=== PATIENT | male | born 1965 | race Caucasian/White ===

== ENCOUNTER 2024-03-31 08:06 | Outpatient (CLI) | payer BC, SELFPAY ==
--- NOTE | 2024-03-31 08:15 | MR_ITS ---
[address] [address] Phone:?[phone] Fax:?[phone] Referring Physician Information: Tereso Delcid M.D. [id number] [facility] [address] Phone:?[phone] Fax:?[phone] Patient:?Hussein Foy D.O.B:?1965 Sex:?Male Phone:?[phone] [facility] MRN:?[id number] Exam Date:?03/31/2024 EXAM: MRI of the LEFT KNEE, without contrast CLINICAL INFORMATION: Male, 59 years old, with left knee pain INDICATION: Evaluate left knee osteoarthritis PRIOR SURGERY: None reported. PLAIN FILMS: None available. COMPARISONS: Knee MRI 12/17/2016. TECHNICAL INFORMATION: Using a 1.5T MR scanner and a localizing surface coil: sagittals: PD, PDFS coronals: PD, T2FS axials: PD, PDFS SEDATION: None CONTRAST: None FINDINGS: Knee joint: Effusion: Small sized left knee effusion. Popliteal cyst: Small popliteal cyst, without evidence of rupture Loose bodies: None. Subcutaneous and extra-articular soft tissues: Unremarkable. Ligaments: ACL: Intact ACL anteromedial and posterolateral bundles, without sprain or tear. PCL: Intact PCL, without acute or chronic injury. MCL: Intact MCL superficial and deep layers, without injury. LCL: Intact LCL, without injury. Posterolateral corner: No posterolateral corner soft tissue injury. Popliteus, biceps femoris, iliotibial band, popliteofibular ligament and lateral gastrocnemius are intact. Posteromedial corner: No posteromedial corner soft tissue injury. Semimembranosus, pes anserine tendons and posterior oblique ligament are without injury, tendinopathy or bursitis. Extensor mechanism: Patellar tendon: Intact, without tendinopathy. Quadriceps tendon: Intact, without tendinopathy. Retinacula: Medial and lateral retinacula are intact. Fat pads: Unremarkable infrapatellar Hoffa's, quadriceps and prefemoral fat pads. Medial compartment: Medial meniscus: The medial meniscus is abnormal in appearance. There is complex tearing with radial component at the level of the mid body (coronal series 8 images 19-16). Additional horizontal inferior articular surface tearing extending through the remainder of the body segment. Horizontal superior articular surface tearing is present involving the anterior body. Apical free edge fraying and tearing extends through the posterior horn with superimposed vertical oblique radial tearing at the level of the posterior horn/root (sagittal series 6 images 13-15). 6 mm peripheral meniscal extrusion at the level of the body. Medial femoral condyle: Grade IV chondromalacia along the central weightbearing medial femoral condyle measuring approximately 2.0 x 2.4 cm. Mild marrow reactive edema and peripheral osteophytosis. Medial tibial plateau: Grade IV chondromalacia along the central medial tibial plateau measuring 1.6 x 2.0 cm with moderate underlying marrow edema. Lateral compartment: Lateral meniscus: Horizontal undersurface tearing of the posterior root lateral meniscus without complete posterior root disruption. The meniscofemoral ligament is intact. Lateral femoral condyle: No chondromalacia or osteochondral abnormality. Lateral tibial plateau: Grade 2 chondral heterogeneity with shallow fraying along the central lateral tibial plateau. Patellofemoral joint: Patella: Grade III chondromalacia with full-thickness fissuring of the lateral patellar facet. No underlying marrow reactive edema. Trochlea: No chondromalacia or osteochondral abnormality. Proximal tibiofibular joint: Unremarkable, without evidence of ligament sprain injury, joint effusion or adjacent marrow edema. Bones: No stress/occult fracture. Redemonstrated bipartite appearance of the patella with osseous bony fragment along the superolateral margin. No significant marrow edema is seen within the accessory ossification center, with minimal degenerative cystic change across the synchondrosis. IMPRESSION: 1. Tearing throughout the medial meniscus as described above with complex high- grade radial component at the level of the mid body, as well as partial tearing of the posterior root. 6 mm peripheral meniscal extrusion at the level of the body. 2. Moderate towards advanced medial compartment osteoarthritis as described above. 3. Horizontal undersurface tearing of the posterior root lateral meniscus. 4. Grade III chondromalacia with full-thickness fissuring of the lateral patellar facet. 5. Mild chondral heterogeneity and shallow fraying of the lateral tibial plateau. 6. Bipartite appearance of the patella with only minimal degenerative change across the synchondrosis, and without overlying chondral abnormality/cleft. 7. No cruciate or collateral ligament sprain/tear. 8. Small knee joint effusion. Small popliteal cyst KME Electronically signed on 03/31/2024 5:02:00 PM by Kalpana Ruiz M.D.
== END 2024-03-31 08:07 | disposition home or self-care (01) ==
LOC: MRI 08:07
PROVIDERS: Visit Provider Orthopaedic Surgery
DX: M25.562 Pain in left knee (principal); M17.12 Unilateral primary osteoarthritis, left knee; S83.232A Complex tear of medial meniscus, current injury, left knee, initial encounter; S83.282A Other tear of lateral meniscus, current injury, left knee, initial encounter; M94.262 Chondromalacia, left knee; M25.462 Effusion, left knee; M71.22 Synovial cyst of popliteal space [Baker], left knee
CPT/HCPCS: 73721

== ENCOUNTER 2024-09-22 07:05 | Outpatient (CLI) | payer BC, SELFPAY ==
--- NOTE | 2024-09-22 07:15 | CRLHL7_ITS ---
For Patients: As a result of the Century Cures Act, medical imaging exams and procedure reports are released immediately into your electronic medical record. You may view this report before your referring provider. If you have questions, please contact your health care provider. EXAM: MRI OF THE LEFT SHOULDER, WITHOUT CONTRAST CLINICAL INDICATION: Shoulder pain. PRIOR SURGERY: None reported. COMPARISON PLAIN FILMS: 15 September 2024 COMPARISON CROSS-SECTIONAL IMAGING STUDIES: None available at time of interpretation. TECHNICAL: Axial, sagittal oblique and coronal oblique T1, PD, PD FS and T2-weighted images. FINDINGS: GLENOHUMERAL JOINT: Effusion/Cyst: Small effusion. Strandy synovitis. No paralabral or periarticular cyst or ganglion. Humeral Head Articular Cartilage: No osteochondral lesion or abnormality. Glenoid Articular Cartilage: No osteochondral lesion or abnormality. Loose Bodies: No appreciable loose bodies. Capsule: No convincing evidence of adhesive capsulitis or capsular injury. OSSEOUS STRUCTURES: No fracture, marrow edema or marrow replacement process. CORACOACROMIAL ARCH: Acromial Morphology: Type 2 acromial morphology. No abnormal lateral or anterior downward sloping of the acromion. No os acromiale. No significant subacromial spur. Lateral acromial thickness is 6 mm. Acromiohumeral Interval: The acromiohumeral interval is significantly narrowed from superior subluxation humeral head. At its narrowest, the interval measures 2-3 mm. No abnormal thickening of the coracoacromial ligament. Coracohumeral Interval: The coracohumeral interval is normal. At its narrowest, the coracohumeral interval measures 9 mm. Coracoid index is 20 mm. ACROMIOCLAVICULAR JOINT REGION: AC Joint: No significant arthrosis, inferior hypertrophy, joint space widening, findings of acute injury or AC joint capsulitis. Upper normal width 5 mm. Ligaments: The coracoclavicular ligaments are intact. BURSAE: Subacromial-Subdeltoid: Moderately extensive fluid and some strandy synovitis or hemorrhage. Subcoracoid: Moderately large volume of fluid. Some strandy intermediate signal hemorrhage or synovitis. ROTATOR CUFF TENDONS AND MUSCLES AND DELTOID: Supraspinatus: Full-thickness tear from the footplate retracted to the glenohumeral joint line roughly 4 centimeters from expected insertion. Tapered tendon with partial tearing at the articular margin. Grade 1 muscle atrophy. Infraspinatus: Full-thickness tear retracted to the posterior humeral head. Delaminating articular tear into a small intramuscular ganglion along the undersurface of the musculotendinous junction. Minor grade 1 muscle atrophy. Teres Minor: No tendinosis, tendon tearing, muscle atrophy or muscle edema. Subscapularis: Full-thickness tearing superior insertion and high-grade undersurface tearing through the remaining insertion. Tendinosis or contusion in the intact proximal tendon. No muscle atrophy. Deltoid: No muscle atrophy or edema. BICEPS TENDON, LONG HEAD: High-grade near complete tear with medial subluxation onto the lesser tuberosity. The biceps anchor appears grossly intact. GLENOID LABRUM: Somewhat small blunted labrum circumferentially. No linear tear. OTHER FINDINGS: There is no abnormality within the suprascapular or spinoglenoid notches nor within the quadrilateral space. No axillary adenopathy or mass. IMPRESSION: 1. Chronic full-thickness tear supraspinatus and infraspinatus and superior inserting subscapularis. Superior subluxation humeral head. Mild muscle atrophy supraspinatus and infraspinatus. 2. Biceps anupam tear and medial subluxation of the biceps with high-grade partial tearing which is near-complete over the lesser tuberosity and intra-articular tendon. 3. Moderate effusion and hemorrhage or synovitis in the glenohumeral joint and subacromial/subdeltoid bursa including subcoracoid recess. Dictated by Gus Sofia MD @ 09/22/2024 1:32:31 PM (Electronically Signed)
== END 2024-09-22 07:06 | disposition home or self-care (01) ==
LOC: MRI 07:06
PROVIDERS: Visit Provider Physician Assistant
DX: M25.512 Pain in left shoulder (principal); M75.102 Unspecified rotator cuff tear or rupture of left shoulder, not specified as traumatic; S46.212A Strain of muscle, fascia and tendon of other parts of biceps, left arm, initial encounter; M25.412 Effusion, left shoulder
CPT/HCPCS: 73221

== ENCOUNTER 2024-10-13 08:19 | Day surgery (SDC) | payer BC, SELFPAY ==
[2024-10-13] VITALS (14 sets, daily range): BP systolic 94–146; BP diastolic 59–96; PULSE 52–73; RESP 14–20; TEMP 36–36.9; O2SAT 90–99; BMI 37.6
--- OUTSIDE RECORDS SUMMARY | 2024-10-13 08:22 | XMS_ITS | Clinical Summary ---
Author Organization [employer] [facility] Address [address] [place] [address] Care Team Providers Care Director Of Safety And Security Name Role Phone Pcp, No Primary Care Provider Unavailabl e Allergies No known active allergies Medications CPAPIndications :Obstructive sleep apnea CPAP machine for home use at pressure: 4-15 CM H20 , Heated humidifier x 1, Humidifier chamber x 1, Full face mask with cushion x 1, Heated tubing x 1, Headgear x 1, Filters: Disposable x 1pk & Reusable x 1pk, Length of Need: 99 months, Frequency of use: Daily 1 Each 4 Active predniSONE (DELTASONE) 20 mg tabletIndicatio ns:Pes planus of both feet,Posterior tibial tendon dysfunction, bilateral,Sinus tarsi syndrome, unspecified laterality,Neo rocnemius equinus, unspecified laterality Take 2 tabs once daily for 3 days then 1 tab once daily for 3 days then 1/2 tab once daily for 4 days. 11 Tablet 3 10/01/19 25 Discontin ued(*Vicky ent states no longer taking) predniSONE (DELTASONE) 10 mg tabletIndicatio ns:Posterior tibial tendon dysfunction, bilateral,Sinus tarsi syndrome, unspecified laterality 4 tablets daily for 3 days, then 3 tablets daily for 3 days, then 2 tablets daily for 3 days, then 1 tablet once daily for 3 days. 30 Tablet 4 10/01/19 25 Discontin ued(*Vicky ent states no longer taking) Active Problems Problem Noted Date Diagnosed Date Nephrolithiasis 09/02/2021 DEBORA (acute kidney injury) 09/02/2021 HELENE , 12/2007, AHI 105 01/02/2017 Encounter for screening colonoscopy Encounters Date Type Department Care Team Description 10/01/2024 7:55 AM CLINICAL STUDY MANAGER Office Visit [address] [address] Bc Huang PA Pre-Op Exam (DOS 10/13/2024; Left rotator cuff) 10/01/2024 Travel from Last 3 Months Immunizations Name Administration Dates Next Due Mumps 12/27/1978 Tdap 04/29/2023,02/06/2013 Family History Medical History Relation Name Comments Heart Disease Father Diabetes Mother Anesthesia Problem No Family History Relation Name Status Comments Brother Alive Daughter 1 Alive Daughter 2 Alive Father Maternal Grandfather Maternal Grandmother Mother Alive Diabetes Paternal Grandfather Paternal Grandmother Sister Alive Social History Tobacco Use Types Packs/Day Years Used Date Smoking Tobacco: Every Day Pipe Last attempted to quit: 02/01/2018 Cigars Smokeless Tobacco: Never Tobacco Cessation:Ready to Q uit: No; Counseling Given: No Comments:occ. cigar Alcohol Use Standard Drinks/Week Comments Yes 10 (1 standard drink = 0.6 oz pu re alcohol) PHQ-2 Answer Date Recorded PHQ-2 TOTAL SCORE 0 12/17/2023 Social Connections Answer Date Recorded Do you often feel lonely or isolated from those around you? 0 10/01/2024 Financial Resource Strain Answer Date R ecorded Difficulty of Paying Living Expenses 3 10/01/2024 Difficulty of Paying Living Expenses Not on file 10/01/2024 Food Insecurity Answer Date Recorded Do you worry your food will run out before you are able to buy more? 1 10/01/2024 Transportation Needs Answer Date Record ed Does lack of transportation keep you from medica l appointments? 1 10/01/2024 Does lack of transportation keep you from work, meetings or getting things that you need? 1 10/01/2024 Housing Stability Answer Date Recorded What is your housing situation today? 1 10/01/2024 Utilities Answer Date Recorded Do you have trouble paying f or utilities (for example, heat, electricity, water, phone)? 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 on file Not on file Not on file Obstetrics History Last Filed Vital Signs Vital Sign Reading Time Taken Comments Blood Pressure 138/86 10/01/2024 8:01 AM CLINICAL STUDY MANAGER Pulse 70 10/01/2024 8:01 AM CLINICAL STUDY MANAGER Temperature 36.7 C (98 F) 10/01/2024 8:01 AM CLINICAL STUDY MANAGER Respiratory Rate 16 06/22/2024 8:03 AM CLINICAL STUDY MANAGER Oxygen Saturation 96% 10/01/2024 8:01 AM CLINICAL STUDY MANAGER Inhaled Oxygen Concentration - - Weight 109.1 kg (240 lb 9.6 oz) 10/01/2024 8:01 AM CLINICAL STUDY MANAGER Height 170.7 cm (5' 7.21) 10/01/2024 8:01 AM CS T Body Mass Index 37.45 10/01/2024 8:01 AM CLINICAL STUDY MANAGER Plan of Treatment Health Maintenance Due Date Last Done Comments HIV for age 15-65 1982 Hepatitis C screening for ag e 18-79 1985 Pneumococcal series for age 50+ (1 of 2 - PCV) 1986 Zoster (shingles) series for age 50+ (1 of 2) 2017 COVID-19 vaccine series ( - season) 2024 Influenza for age 50-64 04/19/2024 Depression screening for age 12+ 12/16/2024 12/17/2023, 11/18/2023, 06/07/2020, Additional history exists BMI (ht and wt on same day) for age 18+ 10/01/2025 10/01/2024, 12/17/2023, 09/11/2021, Additional history exists Lipids for age 45-75 12/16/2028 12/17/2023, 06/03/2018, 08/10/2016, Additional history exists Colonoscopy through age 75 06/22/2029 06/22/2024, Tetanus booster 04/29/2033 04/29/2023, 02/06/2013 Tdap Completed 04/29/2023, 02/06/2013 Medical Devices Implanted Type Area Test And Balance Engineer Device Identifier Shelf Expiration Date Model / Serial / Lot Stent Uret [id number] Percuflex Hydroplus - [id number] Implanted:Qty: 1 on 09/03/2021 by Sarah Otoole MD at [facility] Right: [employer] [facility] [facility] 05/18/2024 [id number] / / [id number] Procedures Procedure Name Priority Date/Time Associated Diagnosis Comments COLONOSCOPY 06/22/2024 7:21 AM CLINICAL STUDY MANAGER LIPID PANEL W REFLEX MEASURED LDL Routine 12/17/2023 11:09 AM CDT Lipid screening from Last 3 Months or Most Recently Relevant to Health Maintenance Results * COLONOSCOPY (06/22/2024 7:21 AM CLINICAL STUDY MANAGER) 06/22/2024 7:21 AM CLINICAL STUDY MANAGER Narrative Transcriptions Bethany Aguayo DO - 06/22/2024 8:13 AM CST Patient Name: Hussein Foy Procedure Date: 06/22/2024 Gender: Male Date of : 1965 Admit Type: Ambulatory Procedure: Colonoscopy Proceduralist: Bethany Aguayo MD Referring MD: Luz Maria Mishra Indications/Pre-Op Diagnosis: High risk colon cancer surveillance:Personal history of colonic polyps Medications: Propofol per Anesthesia, MonitoredAnesthesia Care Procedure Description: The patient had risks, benefits and alternatives explained to andgave informed consent. The patient had a stable cardiopulmonary status and judged an adequate candidate for conscious sedation. The endoscope [id number] was passed through the anus andadvanced to the cecum, identified by appendiceal orifice and ileocecal valve.The colonoscopy was performed without difficulty. The patient toleratedthe procedure well. The quality of the bowel preparation was excellent.The ileocecal valve, appendiceal orifice, and rectum were photographed. Complications: No immediate complications. Estimated Blood Loss & Specimen: Estimated blood loss was minimal. Specimen collected - Yes and sent to Laboratory Findings: The perianal and digital rectal examinations were normal. Pertinent negatives include normal sphincter tone, no palpable rectal lesions, normal prostate (size, shape, and consistency) and normal stool Hemoccult. A 6 mm polyp was found in the splenic flexure. The polyp was sessile. The polyp was removed with a hot biopsy forceps. Resection andretrieval were complete. Verification of patient identification for thespecimen was done. Estimated blood loss was minimal. A 9 mm polyp was found in the transverse colon. The polyp was semi-pedunculated. The polyp was removed with a hot snare. Resectionand retrieval were complete. Verification of patient identification forthe specimen was done. Estimated blood loss was minimal. A 10 mm polyp was found in the sigmoid colon. The polyp was pedunculated. The polyp was removed with a hot snare. Resection and retrieval were complete. Verification of patient identification forthe specimen was done. Estimated blood loss was minimal. Many large-mouthed, medium-mouthed and small-mouthed diverticula were found in the sigmoid colon, descending colon, splenic flexure and transverse colon. Non-bleeding internal hemorrhoids were found during retroflexion. The hemorrhoids were mild, small and Grade I (internal hemorrhoids thatdo not prolapse). The exam was otherwise without abnormality on direct and retroflexion views. Impressions/Post-Op Diagnosis: - One 6 mm polyp at the splenic flexure, removed with a hot biopsy forceps. Resected and retrieved. - One 9 mm polyp in the transverse colon, removed with a hot snare. Resected and retrieved. - One 10 mm polyp in the sigmoid colon, removed with a hot snare. Resected and retrieved. - Diverticulosis in the sigmoid colon, in the descending colon, atthe splenic flexure and in the transverse colon. - Non-bleeding internal hemorrhoids. - The examination was otherwise normal on direct and retroflexionviews. Recommendation: - Patient has a contact number available for emergencies. The signsand symptoms of potential delayed complications were discussed with the patient. Return to normal activities tomorrow. Written discharge instructions were provided to the patient. - Discharge patient to home (ambulatory). - Resume previous diet. - Continue present medications. - Await pathology results. - Repeat colonoscopy in 3 - 5 years for surveillance based onpathology results. Bethany Aguayo MD 06/22/2024 8:12:49 AM This report has been signed electronically. Note Initiated On: 06/22/2024 7:21 AM us Bethany Aguayo DO PROCEDURE ORD Final Res ult * (ABNORMAL) LIPID PANEL W REFLEX MEASURED LDL (12/17/2023 11:09 AM T) CHOLESTEROL,TOTAL 161 100 - 199 mg/dL 12/17/2023 11:52 AM [facility] Comment: Cholesterol, Total Reference Ranges Desirable <200 mg/dL Borderline 200-239 mg/dL High >=240 mg/dL TRIGLYCERIDES 169(H) <150 mg/dL 12/17/2023 11:52 AM [facility] HDL CHOLESTEROL 38(L) >40 mg/dL 11:52 AM [facility] NON-HDL CHOLESTEROL 123 <145 mg/dl 12/17/2023 11:52 AM [facility] CHOL/HDL RATIO 4.24 <4.50 12/17/2023 11:52 AM [facility] LDL CHOLESTEROL 89 <=130 mg/dL 12/17/2023 11:52 AM [facility] VLDL CHOLESTEROL 34(H) <=30 mg/dL 12/17/2023 11:52 AM [facility] PROVIDER ORDERED STATUS RANDOM 12/17/2023 11:52 AM [facility] Blood BLOOD SPECIMEN / Unknown Venipuncture / Unknown 12/17/2023 11:09 AM CDT 12/17/2023 11:09 AM CDT Luz Maria Mishra NP CHEMISTRY Final Result [facility] [address] [place] [id number] from Last 3 Months or Most Recently Relevant to Health Maintenance Insurance [address] [place] [address] [place] [address] Advance Directives * Full Code (Latest Code Status on File) Date Activated Date Inactivated Comments 06/22/2024 6:36 AM 06/22/2024 1:50 PM Question Answer Comments Code Status Discussion: Discussed * Full Code Date Activated Date Inactivated Comments 09/02/2021 11:32 PM 09/03/2021 5:38 PM Question Answer Comments Code Status Discussion: Reviewed Preferences * Full Code Date Activated Date Inactivated Comments 07/07/2018 8:16 AM 07/07/2018 12:34 PM Question Answer Comments Code Status Discussion: Not Discussed Care Teams Director Of Safety And Security Relationship Specialty Start Date End Date Pcp, No . PCP - General 06/02/24
[2024-10-13] MEDS: ACETAMINOPHEN 500 MG TABLET 1000 MG PO (08:45)
[2024-10-13] MEDS: CELECOXIB 200 MG CAPSULE PO (08:45)
[2024-10-13] MEDS: OXYCODONE (CR) 10 MG TAB.ER.12H PO (08:45)
[2024-10-13] MEDS: LACTATED RINGERS 1000 ML 1,000 ML 100 ML IV ×2 (08:50→13:13)
[2024-10-13] MEDS: SODIUM CHLORIDE 0.9 % (FLUSH) 10 ML SYRINGE IVF (08:50)
[2024-10-13] MEDS: fentaNYL 100 MCG/2 ML inj IVP (10:15)
[2024-10-13] MEDS: MIDAZOLAM HCL 1 MG/ML inj IVP (10:15)
--- NOTE | 2024-10-13 10:24 | SUR.PREOP ---
TIME?OUT:?1014 PT/RN/MDA?VERIFICATION?OF?SURGICAL?SITE,?PROCEDURE,?AND?CONSENT OBTAINED?PRIOR?TO?INVASIVE?PROCEDURE. all in agreement
[2024-10-13] MEDS: CEFAZOLIN 2 GM INJ IVP (10:34)
--- NOTE | 2024-10-13 11:02 | P.NB_ITS ---
Nerve Block Nerve Block Time Seen by Provider: 10:15 Date Seen: 10/13/24 Type of block requested by surgeon for post-operative analgesia: supraclavicular Side: left Time out performed: Yes Verification of patient name: Yes Verification of date of : Yes Site marking: site marked Name of person performing procedure: Jad Continuous monitoring Was continuous monitoring of O2 sat, B/P, casting trucker, recorded every 15 minutes?: Yes Procedure Checklist: sterile prep, needles and gloves Ultrasound guided. Images saved: Yes Medications given in 5ml increments after negative aspiration: Ropivicaine %: 0.5 mL: 20 Needle gauge: 22 Precedex (mcg): 25 Patient tolerated procedure well: Yes Block Charges Block Charge (with Pro Fee): Brachial Plexus Use of Ultrasound Machine for Block: Yes- US Guidance/pain block
--- NOTE | 2024-10-13 11:03 | W.ANESCHARGE ---
Anesthesia Charges Start Date/Time Anesthesia Start Date: 10/13/24 Anesthesia Start Time: 10:23 Stop Date/Time Anesthesia Stop Date: 10/13/24 Anesthesia Stop Time: 12:55 Coding CPT Codes CPT Codes: ANESTH SURGERY OF SHOULDER - 53987 ([id number]) P3 - PATIENT W/SEVERE SYS DISEASE, QK - ELECTRONIC EQUIPMENT INSTALLER 2-4 CNCRNT ANES PROC, QX - INSULATION BOARD BACK TENDER SVC W/ MD MED DIRECTION
--- NOTE | 2024-10-13 12:59 | W.ANESCHARGE ---
Anesthesia Charges Start Date/Time Anesthesia Start Date: 10/13/24 Anesthesia Start Time: 10:23 Stop Date/Time Anesthesia Stop Date: 10/13/24 Anesthesia Stop Time: 12:55 Coding CPT Codes CPT Codes: ANESTH SURGERY OF SHOULDER - 26986 ([id number]) P3 - PATIENT W/SEVERE SYS DISEASE, QK - FUR FINISHER TAILOR 2-4 CNCRNT ANES PROC, QX - METAL BENDING MACHINE OPERATOR SVC W/ MD MED DIRECTION
--- NOTE | 2024-10-13 14:04 | PM.ORPRC ---
Procedure Note Date of procedure: 10/13/24 Procedure: PREOPERATIVE DIAGNOSIS: Left shoulder rotator cuff tear, biceps tendinopathy, labral tearing POSTOPERATIVE DIAGNOSIS: Left shoulder rotator cuff tear, biceps tendinopathy, labral tearing NAME OF OPERATION: Left shoulder arthroscopic limited glenohumeral joint debridement, subacromial decompression, mini open rotator cuff repair, biceps tenodesis SURGEON: Tereso Delcid MD COMPUTER GRAPHIC DESIGNER: OBDULIO Nova ANESTHESIA: Supraclavicular block plus general endotracheal ESTIMATED BLOOD LOSS: 5 mL COMPLICATIONS: None SPECIMENS: None DRAINS: None PREOPERATIVE ANTIBIOTICS: Ancef 2 grams INDICATIONS: The patient is a 59-year-old with a history of left shoulder pain secondary to the above diagnoses. Despite appropriate non operative management, they continue to have symptoms. Operative intervention was recommended. The risks, benefits and expected outcomes were discussed in detail. These included but were not limited to: Infection, bleeding, injury to blood vessel or nerve, venous thromboembolism. All questions were answered to their satisfaction. PROCEDURE: A supraclavicular block was placed by Anesthesia. General anesthesia was administered. The patient was placed in the high beach chair position. The left shoulder was prepped and draped in the usual sterile fashion. The glenohumeral joint was infiltrated with 20 mL of normal saline with epinephrine. The posterior portal was established, the arthroscope was introduced. The anterior portal was established, Diagnostic arthroscopy was performed with findings as follows: The biceps has a marked amount of intra-articular tendinopathy. The anterior, posterior and superior labrum shows age-appropriate degenerative fraying. Articular surfaces on the humeral head and glenoid are normal. There are no loose bodies. There is a full-thickness tear of the supraspinatus and infraspinatus. The labrum was circumferentially debrided with the shaver. The biceps was tenotomized with the arthroscopic scissors. The stump was debrided with the shaver. The arthroscope was placed in the subacromial space, the lateral portal was established. The Arthrex Ryan was used to dissect the acromion free. The CA ligament was recessed off the anterior acromion, the AC joint was not exposed. The acromioplasty was performed with the bur in the posterior portal. The bur was then placed in the lateral portal and the lateral and anterior aspect of the acromion were resected. An accessory anterolateral portal was placed. The subacromial/subdeltoid bursa was aggressively debrided. There is a full-thickness tear of the supraspinatus and infraspinatus, with retraction. However, the cuff is good quality tissue and highly mobile. Arthroscopic instruments were removed. The accessory anterolateral portal was extended proximally and distally, subcutaneous dissection was taken with electrocautery to the deltoid. The deltoid was divided in line with its fibers. The static retractor was placed. The subacromial/subdeltoid bursa was debrided with the [place] scissors. The greater tuberosity was debrided to punctate bleeding bone using the arthroscopic bur. A whipstitch was placed in the biceps. Three Arthrex fiber lock anchors were placed just off the articular surface. Both limbs of the FiberWire and fiber tape were passed using the scorpion. A fiber link was placed in the leading edge of the rotator cuff x2. The suture in the biceps was incorporated in the eyelet of the most anterior of the medial row anchors, completing the biceps tenodesis. We then proceeded with a lateral row of SwiveLock anchors x 2 crossing the FiberTape and incorporating the FiberWire and fiber link into each lateral row anchor. Next, we tied the FiberWire sutures from the eyelet of each medial row anchor over the bursal surface of the rotator cuff. Finally, we passed eyelet suture on each of the lateral row anchors through the leading edge of the rotator cuff and tied a simple suture. This provides an anatomic, watertight repair of the rotator cuff. There is no tension on the repair with the shoulder at 0? abduction. The wound was irrigated with normal saline off the pump. The deltoid was repaired with an 0 Vicryl in an interrupted [id number] fashion. Subcutaneous tissues were closed with a 3-0 Vicryl. Skin was closed with a 3-0 Monocryl in a subcuticular fashion. A dry dressing and sling were applied. Sponge and needle counts were correct x2. The patient tolerated the procedure well. There were no apparent complications. They were carefully transferred to the hospital bed and taken to the postanesthesia care unit in satisfactory condition. PLAN: The patient will be discharged to home. No active range of motion of the shoulder will be allowed for 6 weeks postoperatively. They can work on active range of motion of the elbow, wrist and fingers. They will follow up in the office next week for a wound check and an AP and transscapular Y-view of the shoulder prior to being seen.
== END 2024-10-13 14:35 | disposition home or self-care (01) ==
LOC: OR 08:20
PROVIDERS: Visit Provider Orthopaedic Surgery
PROC: (CPT 23412; principal; 2024-10-13 10:30)
DX: M75.122 Complete rotator cuff tear or rupture of left shoulder, not specified as traumatic (principal); S43.432A Superior glenoid labrum lesion of left shoulder, initial encounter; M75.22 Bicipital tendinitis, left shoulder; G89.18 Other acute postprocedural pain
CPT/HCPCS: 29826; 29828; 29822; 23412; 01630; 64415; 76942; A9270; C1713; J0330; J0690; J1100; J2250; J2405; J2704; J2710; J2795; J3010; J7120; L3670